=== PATIENT | male | born 1985 | race Caucasian/White ===

== ENCOUNTER 2023-05-17 11:18 | Outpatient (CLI) | payer OTHER, SELFPAY | END 2023-05-17 11:19 | disposition home or self-care (01) | PROVIDERS: PCP Family Medicine; Visit Provider Family Medicine | DX: Z00.00 Encounter for general adult medical examination without abnormal findings (principal); I10 Essential (primary) hypertension; F51.01 Primary insomnia; N52.9 Male erectile dysfunction, unspecified; R63.4 Abnormal weight loss; Z13.1 Encounter for screening for diabetes mellitus; Z13.6 Encounter for screening for cardiovascular disorders; Z13.29 Encounter for screening for other suspected endocrine disorder | CPT/HCPCS: 80053; 80061; 83036; 84443 ==

== ENCOUNTER 2023-08-16 14:49 | Outpatient (CLI) | payer OTHER, SELFPAY | END 2023-08-16 14:50 | disposition home or self-care (01) | LOC: LKVREF 14:50 | PROVIDERS: PCP Family Medicine; Visit Provider Family Medicine | DX: I10 Essential (primary) hypertension (principal); E13.9 Other specified diabetes mellitus without complications; F10.10 Alcohol abuse, uncomplicated; R10.9 Unspecified abdominal pain | CPT/HCPCS: 80076 ==

== ENCOUNTER 2025-04-26 08:22 | Outpatient (CLI) | payer OTHER, SELFPAY | END 2025-04-26 08:23 | disposition home or self-care (01) | LOC: NFLDREF 04-30 15:48 | PROVIDERS: PCP Family Medicine; Referring Provider Family Medicine; Visit Provider Family Medicine | DX: E11.9 Type 2 diabetes mellitus without complications (principal); R53.83 Other fatigue; R53.82 Chronic fatigue, unspecified; Z13.6 Encounter for screening for cardiovascular disorders | CPT/HCPCS: 80053; 80061; 84403; 84443 ==